=== PATIENT | female | born 2000 | race African-American/Black ===

== ENCOUNTER 2021-05-09 14:04 | Emergency (ER) | payer OTHER, SELFPAY ==
[2021-05-09] MEDS ORDERED: Ibuprofen 200 MG TAB ONE (14:48)
== END 2021-05-09 16:08 | disposition home or self-care (01) ==
LOC: CSHERS 14:04
DX: J02.9 Acute pharyngitis, unspecified (principal); J32.1 Chronic frontal sinusitis; M79.622 Pain in left upper arm; X50.0XXA Overexertion from strenuous movement or load, initial encounter; Y92.69 Other specified industrial and construction area as the place of occurrence of the external cause
CPT/HCPCS: 87081; 87430; 99284

== ENCOUNTER 2021-12-17 17:12 | Emergency (ER) | payer OTHER, SELFPAY ==
[2021-12-17] MEDS ORDERED: Acetaminophen 500 MG TAB ONE (18:04)
[2021-12-17] MEDS ORDERED: Ibuprofen 200 MG TAB ONE (18:05)
== END 2021-12-17 18:30 | disposition home or self-care (01) ==
LOC: CSHERS 17:12
DX: R51.9 Headache, unspecified (principal); R07.9 Chest pain, unspecified
CPT/HCPCS: 71045; 93005

== ENCOUNTER 2022-02-12 12:57 | Emergency (ER) | payer OTHER, SELFPAY ==
[2022-02-12] MEDS ORDERED: Ketorolac Tromethamine 30 MG/ML VIAL ONE (14:15)
== END 2022-02-12 14:15 | disposition home or self-care (01) ==
LOC: CSHERS 12:57
DX: S06.9X9A Unspecified intracranial injury with loss of consciousness of unspecified duration, initial encounter (principal); S05.12XA Contusion of eyeball and orbital tissues, left eye, initial encounter; V48.6XXA Car passenger injured in noncollision transport accident in traffic accident, initial encounter
CPT/HCPCS: 70450; 70486; 96372; J1885